=== PATIENT | male | born 1970 | race Caucasian/White ===

== ENCOUNTER 2017-04-05 17:38 | Emergency (ER) | payer OTHER ==
[~2017-04-05] VITALS: Ht 177.8 cm; Wt 72.7 kg
[2017-04-05] MEDS ORDERED: IBUPROFEN 800 MG TABLET PO ONE (19:00)
[2017-04-05 20:58] VITALS: BP 130/80
== END 2017-04-05 21:06 | disposition home or self-care (01) ==
LOC: EMS 17:42
DX: S83.91XA Sprain of unspecified site of right knee, initial encounter (principal); W19.XXXA Unspecified fall, initial encounter; Y93.89 Activity, other specified; Y92.89 Other specified places as the place of occurrence of the external cause; Y99.8 Other external cause status
CPT/HCPCS: 99284

== ENCOUNTER 2023-07-27 02:10 | Emergency (ER) | payer OTHER ==
[~2023-07-27] VITALS: Ht 177.8 cm; Wt 77.3 kg
[2023-07-27 02:34] VITALS: TEMP 98.1
[2023-07-27] MEDS ORDERED: APIX5TAB PO (02:38)
[2023-07-27 03:18] VITALS: BP 138/81; PULSE 65; RESP 17
[2023-07-27 04:17] LABS: BASOPHILS % (AUTO) 0.4 % (0.0-2.0); EOSINOPHILS % (AUTO) 6.9 % (1.0-6.0); HEMATOCRIT 38.7 % (41-53); HEMOGLOBIN 12.9 g/dL (13.5-17.5); LYMPHOCYTES # (AUTO) 2.4 K/uL (1.0-4.8); LYMPHOCYTES % (AUTO) 26.7 % (22.0-44.0); MEAN CORPUSCULAR HEMOGLOBIN 29.5 pg (26.0-34.0); MEAN CORPUSCULAR HGB CONC 33.4 G/dL (31.0-37.0); MEAN CORPUSCULAR VOLUME 89 fL (80-100); MONOCYTES # (AUTO) 0.8 K/uL (0.1-1.0); MONOCYTES % (AUTO) 9.3 % (2.0-9.0); NEUTROPHILS # (AUTO) 5.1 K/uL (1.8-7.7); NEUTROPHILS % (AUTO) 56.7 % (40.0-70.0); PLATELET COUNT (AUTO) 253 K/uL (150-450); RED BLOOD CELL COUNT(AUTO) 4.37 MIL/uL (4.50-5.90); RED CELL DISTRIBUTION WIDTH 13.7 % (11.5-14.5)
[2023-07-27 04:27] LABS: ANION GAP 5 mmol/L (8-16); CARBON DIOXIDE 29 mmol/L (22-29); CHLORIDE 103 mmol/L (98-107); CREATININE 0.81 mg/dL (0.60-1.30); GLOMERULAR FILTR. RATE CALC > 60 mL/min (>60); GLUCOSE,RANDOM 115 mg/dL (70-110); POTASSIUM 3.9 mmol/L (3.5-5.1); SODIUM SERUM 137 mmol/L (136-145); UREA NITROGEN, BLOOD 13 mg/dL (7-18)
[2023-07-27 04:33] LABS: ALANINE AMINOTRANSFERASE 20 U/L (12-78); ALBUMIN 3.4 g/dL (3.4-5.0); ALKALINE PHOSPHATASE 98 U/L (46-116); ASPARTATE AMINOTRANSFERASE 18 U/L (15-37); BILIRUBIN,TOTAL 0.2 mg/dL (0.1-1.0); TOTAL PROTEIN, SERUM 7.5 g/dL (6.4-8.2)
[2023-07-27] MEDS ORDERED: CEPH-558 PO (04:39)
[2023-07-27] MEDS ORDERED: SULF1TAB42 PO (04:39)
[2023-07-27] MEDS ORDERED: CEPHALEXIN MONOHYDRATE 500 MG CAPSULE PO ONE (04:45)
[2023-07-27] MEDS ORDERED: SULFAMETHOX/TRIMETH DS 800-160 MG/TABLET PO ONE (04:45)
== END 2023-07-27 05:08 | disposition home or self-care (01) ==
LOC: EMS 02:11
DX: L03.115 Cellulitis of right lower limb (principal)
CPT/HCPCS: 80053; 85025; 99283

== ENCOUNTER 2023-09-19 13:07 | Emergency (ER) | payer OTHER ==
[~2023-09-19] VITALS: Ht 175.3 cm; Wt 77.3 kg
[~2023-09-19 13:07] MED LIST: APIX5TAB PO; CEPH-558 PO; SULF1TAB42 PO
[2023-09-19 13:14] VITALS: TEMP 97.7
[2023-09-19] MEDS ORDERED: SULF-261 PO (13:55)
[2023-09-19] MEDS: SULFAMETHOX/TRIMETH DS 800-160 MG/TABLET PO ONE (14:08)
[2023-09-19] MEDS: IBUPROFEN 400 MG TABLET PO ONE (14:08)
[2023-09-19] MEDS: BACITRACIN 0.9 GM PACKET OINTMENT TP ONE (14:08)
[2023-09-19 14:22] VITALS: BP 127/72; PULSE 91; RESP 18
== END 2023-09-19 14:28 | disposition home or self-care (01) ==
LOC: EMS 13:10
DX: L03.012 Cellulitis of left finger (principal)
CPT/HCPCS: 99284; Z7502; Z7610